=== PATIENT | female | born 1970 | race Caucasian/White ===

== ENCOUNTER → 2019-04-12 | Outpatient (CLI) | payer BC ==
[~2019-04-12] MED LIST: BACL20 PO; Bupropion HCl150 M2 PO; ESTRADIOL1 EAC3 TD; NUCYNTA ER250 MG PO; PROGESTERONE200 MG PO; Prednisone10 MG PO; Protonix40 MG PO; Roxicodone15 MG PO; SOLIFENACIN SUC10 MG PO; SUCR1 PO
[2019-04-14 15:07] LABS: HPV 16 Negative (Negative); HPV 18 Negative (Negative); HPV OTHER HR TYPES Negative (Negative)
== END | disposition home or self-care (01) ==
LOC: LAB SHORT 15:18 → LAB 15:18
PROVIDERS: Nurse Practitioner Women's Health
DX: Z12.4 Encounter for screening for malignant neoplasm of cervix (principal)
CPT/HCPCS: 87624; G0123

== ENCOUNTER 2019-04-30 10:49 | Emergency (ER) | payer BC ==
[~2019-04-30] VITALS: Ht 167.6 cm; Wt 72.6 kg
[2019-04-30] MEDS ORDERED: ESTRADIOL1 EAC3 TD (11:12)
[2019-04-30] MEDS ORDERED: Bupropion HCl150 M2 PO (11:12)
[2019-04-30] MEDS ORDERED: PROGESTERONE200 MG PO (11:12)
[2019-04-30] MEDS ORDERED: SOLIFENACIN SUC10 MG PO (11:13)
[2019-04-30] MEDS ORDERED: NUCYNTA ER250 MG PO (11:13)
[2019-04-30] MEDS ORDERED: Prednisone10 MG PO (11:13)
[2019-04-30] MEDS ORDERED: Roxicodone15 MG PO (11:14)
[2019-04-30] MEDS ORDERED: BACL20 PO (11:14)
[2019-04-30 11:19] LABS: BASOPHILS ABSOLUTE AUTO 0.01 K/mm3 (0.00-0.23); BASOPHILS PERCENT AUTO 0 % (0-2); EOSINOPHILS PERCENT AUTO 0 % (0-6); Hemoglobin 13.2 g/dL (11.5-16.0); IMMATURE GRAN ABSOLUTE AUTO 0.04 K/mm3 (0.00-0.10); IMMATURE GRAN PERCENT AUTO 0 % (0-1); LYMPHOCYTES PERCENT AUTO 7 % (21-46); MONOCYTES PERCENT AUTO 2 % (4-13); Mean Corpuscular HGB 30.3 pg (26.0-34.0); Mean Corpuscular Volume 92 fL (80-100); Mean Platelet Volume 10.2 fL (9.1-12.4); NEUTROPHILS ABSOLUTE AUTO 10.83 K/mm3 (1.96-9.15); NEUTROPHILS PERCENT AUTO 91 % (41-73); Platelet Count 215 K/mm3 (150-400); RDW Coefficient Variation 12.5 % (11.7-14.2); RDW Standard Deviation 42.3 fL (35.1-46.3); Red Blood Cell Count 4.36 M/mm3 (3.80-5.20); White Blood Cell Count 11.88 K/mm3 (4.00-11.30)
[2019-04-30 11:46] LABS: Alanine Aminotransfer (ALT/SGP 21 U/L (12-78); Albumin, Blood 3.7 g/dL (3.4-5.0); Albumin/Globulin Ratio 1.3 (0.8-1.8); Alk Phos 56 U/L (50-136); Anion Gap 4 mmol/L (6-16); Aspartate Aminotrans (AST/SGOT 14 U/L (12-37); Bilirubin, Total 0.3 mg/dL (0.1-1.0); Blood Urea Nitrogen 19 mg/dL (8-24); Bun/Creatinine Ratio 24.8 (12.0-20.0); CO2, Blood 29 mmol/L (21-32); Calcium, Blood 8.3 mg/dL (8.5-10.1); Chloride, Blood 109 mmol/L (98-108); Creatinine, Blood 0.77 mg/dL (0.40-1.00); Globulin, Blood 2.9 g/dL (2.2-4.0); Glomerular Filtration Rate >60 (60-); Glucose, Blood 114 mg/dL (70-99); Sodium, Blood 142 mmol/L (136-145); Total Protein, Blood 6.6 g/dL (6.4-8.2); Troponin I <0.015 ng/mL (0.000-0.040)
[2019-04-30] MEDS ORDERED: Protonix40 MG PO (11:57)
[2019-04-30] MEDS ORDERED: SUCR1 PO (11:57)
== END 2019-04-30 12:22 | disposition home or self-care (01) ==
LOC: ER 10:49
PROVIDERS: Internal Medicine
DX: K22.4 Dyskinesia of esophagus (principal); K21.9 Gastro-esophageal reflux disease without esophagitis; F32.9 Major depressive disorder, single episode, unspecified; G89.29 Other chronic pain; F17.219 Nicotine dependence, cigarettes, with unspecified nicotine-induced disorders; Z88.2 Allergy status to sulfonamides; Z88.0 Allergy status to penicillin; Z79.899 Other long term (current) drug therapy
CPT/HCPCS: 36415; 71046; 80053; 83690; 84484; 85025; 93005; 93010; 96374; 96375; 99284-25; C9113; J2405

== ENCOUNTER → 2019-07-12 | Outpatient (CLI) | payer BC ==
[2019-07-12 12:37] LABS: Source, Urine Catheter
[2019-07-12 13:59] LABS: Appearance, Urine Hazy (Clear); Bilirubin, Urine Neg (Neg); Blood, Urine 3+ (Neg); Color, Urine Yellow (P-Yellow); Glucose Qualitative, Urine Neg (Neg); Ketones, Urine Neg (Neg); Leukocyte Esterase, Urine 3+ (Neg); Nitrite, Urine Neg (Neg); Protein, Urine 2+ (Neg); Urobilinogen, Urine NORM (Normal)
[2019-07-12 14:41] LABS: White Blood Cells, Urine TNTC /hpf (0-5)
[2019-07-12 14:42] LABS: Bacteria Mod /hpf; Squamous Epithelial Cells Few /hpf (Few)
== END | disposition home or self-care (01) ==
LOC: LAB SHORT 11:26 → LAB 11:26
PROVIDERS: Nurse Practitioner Women's Health
DX: R35.0 Frequency of micturition (principal); R30.0 Dysuria
CPT/HCPCS: 81001; 87077; 87086; 87186

== ENCOUNTER → 2020-10-01 | Outpatient (CLI) | payer BC ==
[~2020-10-01] MED LIST changes: +Adipex-P37.5 M1 PO; +BUPR150ER PO; +CYCL10 PO; +DIAZ5 PO; +DOTTI1 EA19 TD; +IBUP800 PO; +LYLLANA TD; +MISO200 PO; +MYRBETRIQ50 MG PO; +NICO21TP TOP; +Ondansetron Odt8 MG MM; +PERCOCET 10-321 EAC1; +PROAIR RESPICL90 MCG IH; +PROG100 PO; +Vesicare10 MG PO
== END | disposition home or self-care (01) ==
LOC: LAB EV 14:56 → LAB SHORT 14:56
DX: N39.0 Urinary tract infection, site not specified (principal)
CPT/HCPCS: 87086

== ENCOUNTER 2021-03-16 06:12 | Day surgery (SDC) | payer BC ==
[~2021-03-16] VITALS: Ht 170.2 cm; Wt 214.8 kg
[~2021-03-16 06:12] MED LIST changes: -PERCOCET 10-321 EAC1
[2021-03-16] MEDS ORDERED: PERCOCET 10-321 EAC1 (07:01)
--- NOTE | 2021-03-16 08:04 | NUR ---
03/16/21 0804 Cresencio Lassiter FLUID DEFICIT, 115 MLS. WONDERLY NOTIFIED.
--- NOTE | 2021-03-16 08:24 | NUR ---
03/16/[address] BLANCO FOR ANCEF WITH KNOWN PCN ALLERGY OF HIVES.
--- NOTE | 2021-03-16 09:01 | NUR ---
03/16/21 0901 Sabina Olivo PT OUT OF PACU, DENIES ANY COMPLAINTS, STATES THAT SHE DOES HAVE CRAMPING, WAS BLEEDING PRIOR TO COMING HERE TODAY. WANTS TO USE THE RESTROOM. IV REMOVED, NO NAUSEA, TAKING FLUIDS. WC TO BR AND WC TO CAR WITH FRIEND FRUIT HARVEST WORKER.
== END 2021-03-16 08:54 | disposition home or self-care (01) ==
LOC: ORSCSDS 06:12
PROVIDERS: Obstetrics & Gynecology
PROC: 0UDB8ZX Extraction of Endometrium, Via Natural or Artificial Opening Endoscopic, Diagnostic (ICD-10-PCS; principal; 2021-03-16 07:30)
DX: N95.0 Postmenopausal bleeding (principal); G47.33 Obstructive sleep apnea (adult) (pediatric); Z87.891 Personal history of nicotine dependence; Z79.899 Other long term (current) drug therapy; E66.9 Obesity, unspecified; Z68.33 Body mass index [BMI] 33.0-33.9, adult
CPT/HCPCS: 88305; J0690; J1100; J1885; J2250; J2405; J2704; J3010; J7120

== ENCOUNTER → 2021-08-28 | Outpatient (CLI) | payer BC ==
[~2021-08-28] MED LIST changes: +PERCOCET 10-321 EAC1
[2021-08-28 09:36] LABS: Source, Urine Clean Catch
[2021-08-28 14:14] LABS: Bacteria Many /hpf; Red Blood Cells, Urine 0-2 /hpf (0-2); Squamous Epithelial Cells Few /hpf (Few); White Blood Cells, Urine TNTC /hpf (0-5)
== END | disposition home or self-care (01) ==
LOC: LAB SHORT 09:30 → LAB 09:30 → LAB FUT 08-27 09:10
PROVIDERS: Obstetrics & Gynecology
DX: N39.0 Urinary tract infection, site not specified (principal); R31.9 Hematuria, unspecified
CPT/HCPCS: 81015; 87077; 87086; 87186

== ENCOUNTER → 2021-10-31 | Outpatient (CLI) | payer BC | LOC: LAB SHORT 12:39 | DX: R39.9 Unspecified symptoms and signs involving the genitourinary system (principal) | CPT/HCPCS: 82043 ==

== ENCOUNTER 2023-05-02 07:14 | Day surgery (SDC) | payer OTHER ==
[~2023-05-02] VITALS: Ht 167.6 cm; Wt 82.8 kg
[2023-05-02] MEDS ORDERED: WEGOVY0.5 MG/0.5 SQ (08:12)
[2023-05-02 09:55] VITALS: BP 110/60
== END 2023-05-02 10:12 | disposition home or self-care (01) ==
LOC: ORSCSDS 07:14
PROVIDERS: Internal Medicine Gastroenterology
PROC: 0DJD8ZZ Inspection of Lower Intestinal Tract, Via Natural or Artificial Opening Endoscopic (ICD-10-PCS; principal; 2023-05-02 08:45)
DX: K62.5 Hemorrhage of anus and rectum (principal); K59.00 Constipation, unspecified; K64.8 Other hemorrhoids; E78.5 Hyperlipidemia, unspecified; Z79.899 Other long term (current) drug therapy
CPT/HCPCS: J2704; J7120

== ENCOUNTER → 2023-07-16 | Outpatient (CLI) | payer OTHER ==
[~2023-07-16] MED LIST changes: +WEGOVY0.5 MG/0.5 SQ
== END ==
LOC: LAB SHORT 15:25 → LAB 15:25 → EDSTATUS 07-15 15:00 → LAB FUT 07-15 15:00
DX: R30.0 Dysuria (principal)
CPT/HCPCS: 87077; 87086; 87186

== ENCOUNTER 2025-02-17 01:22 | Inpatient (IN) | payer OTHER ==
[~2025-02-17] VITALS: Ht 167.6 cm; Wt 77.1 kg
[2025-02-17] MEDS ORDERED: Ondansetron HCl 2 MG / ML 2ML Vial IV ONE (02:05)
[2025-02-17] MEDS ORDERED: Morphine Sulfate 4 MG/1 ML Injection IV ONE (02:05)
[2025-02-17] MEDS ORDERED: NS 1,000 ML IV SCH ×4 (02:05→15:30)
[2025-02-17] MEDS ORDERED: Ondansetron HCl 2 MG / ML 2ML Vial ONE (02:16)
[2025-02-17] MEDS ORDERED: HYDROmorphone HCl/Pf 1MG SYR IV PRN (02:20)
[2025-02-17 02:32] LABS: BASOPHILS ABSOLUTE AUTO 0.08 K/mm3 (0.00-0.23); BASOPHILS PERCENT AUTO 1 % (0-2); EOSINOPHILS ABSOLUTE AUTO 0.13 K/mm3 (0.00-0.68); EOSINOPHILS PERCENT AUTO 2 % (0-6); Hematocrit 39.9 % (33.0-51.0); Hemoglobin 13.4 g/dL (11.5-16.0); IMMATURE GRAN ABSOLUTE AUTO 0.01 K/mm3 (0.00-0.10); IMMATURE GRAN PERCENT AUTO 0 % (0-1); LYMPHOCYTES ABSOLUTE AUTO 1.93 K/mm3 (0.84-5.20); LYMPHOCYTES PERCENT AUTO 27 % (21-46); MONOCYTES ABSOLUTE AUTO 0.54 K/mm3 (0.16-1.47); MONOCYTES PERCENT AUTO 8 % (4-13); Mean Corpuscular HGB 30.5 pg (26.0-34.0); Mean Corpuscular HGB Conc 33.6 g/dL (31.5-36.5); Mean Corpuscular Volume 91 fL (80-100); Mean Platelet Volume 10.4 fL (9.1-12.4); NEUTROPHILS ABSOLUTE AUTO 4.48 K/mm3 (1.96-9.15); NEUTROPHILS PERCENT AUTO 63 % (41-73); Platelet Count 222 K/mm3 (150-400); RDW Coefficient Variation 12.3 % (11.7-14.2); RDW Standard Deviation 40.6 fL (35.1-46.3); Red Blood Cell Count 4.39 M/mm3 (3.80-5.20); White Blood Cell Count 7.17 K/mm3 (4.00-11.30)
[2025-02-17 02:57] LABS: Albumin, Blood 3.9 g/dL (3.4-5.0); Albumin/Globulin Ratio 1.2 (0.8-1.8); Bilirubin, Total 0.3 mg/dL (0.1-1.0); Bun/Creatinine Ratio 15.2 (12.0-20.0); Calcium, Blood 9.3 mg/dL (8.5-10.1); Creatinine, Blood 0.92 mg/dL (0.40-1.00); Globulin, Blood 3.3 g/dL (2.2-4.0); Potassium, Blood 3.6 mmol/L (3.5-5.5); Total Protein, Blood 7.2 g/dL (6.4-8.2)
[2025-02-17 03:33] LABS: Source, Urine Clean Catch
[2025-02-17 04:00] LABS: Bilirubin, Urine Neg (Neg); Blood, Urine Neg (Neg); Glucose Qualitative, Urine Neg (Neg); Ketones, Urine Neg (Neg); Leukocyte Esterase, Urine Neg (Neg); Nitrite, Urine Neg (Neg); Protein, Urine Neg (Neg); Urobilinogen, Urine NORM (Normal)
[2025-02-17 04:19] LABS: Appearance, Urine Clear (Clear); Color, Urine Yellow (P-Yellow)
[2025-02-17] MEDS ORDERED: Ondansetron HCl 2 MG / ML 2ML Vial IV PRN (05:10)
[2025-02-17] MEDS ORDERED: FentaNYL Citrate 50 MCG/ML 2 ML Injection IV PRN ×2 (05:15→10:30)
[2025-02-17] MEDS ORDERED: LORazepam 2 MG/ML 1ML Injection IV ONE (05:35)
[2025-02-17 06:14] VITALS: BP 162/96
[2025-02-17 07:31] VITALS: BP 145/98
--- NOTE | 2025-02-17 07:35 | NUR ---
0610-ER ADMIT TO ROOM 227 A 54Y/O FEMALE WHO CAME IN WITH ABD PAIN THAT STARTED AT 5 PM YESTERDAY. ADMITTED WITH SBO. TO ROOM WITH NG. PER REPORT NG PUT OUT 200 ML IN ED. PT IS MISERABLE WITH NG AND STILL HAVING ABD PAIN. LEGAL PROJECT MANAGER GAVE HER ATIVAN 0.5 MG IV PRIOR TO BRINGING HER TO ROOM. PT MEDICATED WITH MORPHINE AND DILAUDID IN ED AND PAIN STILL A 7/. ORTHO RN WIPED PT WITH SURG KIT. WARM BLANKET GIVEN. MEDICATED PT WITH FENTANYL 50 MCG IV. IV SITE LEFT AC AND PATIENT KEEPS BENDING IT, PLACED PILLOW UNDER ARM TO REMIND HER. IV NS STARTED AT 100 ML/HR. ORIENTED TO ROOM AND CALL LIGHT. NG TO LOW INTERMITTENT SX. HOSP HERE TO SEE PATIENT. PT ASKED FOR WATER AND SAID SHE CAN HAVE ICE CHIPS SPARINGLY, GIVEN. FENTANYL SEEMS TO BE HELPING WITH PTS PAIN. BED IN LOW POSITION AND CALL LIGHT IN REACH. REPORT TO RN TAKING PATIENT.
[2025-02-17 07:38] VITALS: BP 145/98
--- NOTE | 2025-02-17 12:57 | NUR ---
ICE PACK PROVIDED TO PT FOR HEADACHE. PLACED ON R TEMPORAL AREA. BLINDS CLOSED PT REPORTS LIGHT SENSITIVITY. PRIMARY RN NOTIFIED.
[2025-02-17] MEDS ORDERED: Ketorolac Tromethamine 15mg Vial IV PRN (15:00)
[2025-02-17 15:08] VITALS: BP 148/94
[2025-02-17] MEDS ORDERED: PERCOCET 10-321 EA10 PO (17:06)
--- NOTE | 2025-02-17 18:33 | NUR ---
SHIFT SUMMARY PT ADMITTED ON 02/17/25 FOR SBO. ADVANCED DIET TO CLEAR LIQUIDS PER DR. CASTILLO. PT TOLERATING DIET. DENIES N&V. MEDICATED FOR PAIN PER EMAR. ABDOMEN TENDER TO PALPATION. INDEPENDENT IN ROOM. CONTINUING TO HAVE LOOSE BM. PLAN TO ADVANCE DIET TOLERATED WITH DISCHARGE ON 02/18/25.
[2025-02-17 19:46] VITALS: BP 131/97
[2025-02-17] MEDS ORDERED: Docusate Sodium 100 MG Cap PO SCH (21:00)
[2025-02-17 23:42] VITALS: BP 142/90
--- NOTE | 2025-02-18 04:14 | NUR ---
SHIFT SUMMARY SANJU WAS ALERT AND FULLY ORIENTED ON ASSESSMENT. PT IND IN ROOM. PAIN MODERATELY WELL CONTROLLED AT THIS TIME. DENIES N/V. BT HYPOACTIVE T/O ABD. DISCUSSED BOWEL HABITS W/ PT AND LEARNED THAT PT HAS CHRONIC CONSTIPATION THAT SHE TAKES MANY OTC MEDS FOR DAILY TO STAY REGULAR, GIVEN THE REASON FOR PT ADMIT I REACHED OUT TO HOSPITALIST AND GOT BOWEL CARE ORDERED. NO ACUTE EVENTS TONIGHT OR OTHER NOTABLE CHANGES TO PT CONDITION.
[2025-02-18 04:16] VITALS: BP 134/89
[2025-02-18 05:30] LABS: BASOPHILS ABSOLUTE AUTO 0.07 K/mm3 (0.00-0.23); BASOPHILS PERCENT AUTO 1 % (0-2); EOSINOPHILS ABSOLUTE AUTO 0.17 K/mm3 (0.00-0.68); EOSINOPHILS PERCENT AUTO 2 % (0-6); Hematocrit 39.4 % (33.0-51.0); Hemoglobin 13.2 g/dL (11.5-16.0); IMMATURE GRAN ABSOLUTE AUTO 0.02 K/mm3 (0.00-0.10); IMMATURE GRAN PERCENT AUTO 0 % (0-1); LYMPHOCYTES ABSOLUTE AUTO 2.13 K/mm3 (0.84-5.20); LYMPHOCYTES PERCENT AUTO 25 % (21-46); MONOCYTES PERCENT AUTO 7 % (4-13); Mean Corpuscular HGB Conc 33.5 g/dL (31.5-36.5); Mean Corpuscular Volume 90 fL (80-100); Mean Platelet Volume 10.2 fL (9.1-12.4); NEUTROPHILS ABSOLUTE AUTO 5.47 K/mm3 (1.96-9.15); NEUTROPHILS PERCENT AUTO 65 % (41-73); Platelet Count 211 K/mm3 (150-400); RDW Coefficient Variation 12.2 % (11.7-14.2); RDW Standard Deviation 40.1 fL (35.1-46.3); White Blood Cell Count 8.46 K/mm3 (4.00-11.30)
[2025-02-18 06:02] LABS: Albumin, Blood 3.6 g/dL (3.4-5.0); Albumin/Globulin Ratio 1.2 (0.8-1.8); Bilirubin, Total 0.6 mg/dL (0.1-1.0); Bun/Creatinine Ratio 10.9 (12.0-20.0); Calcium, Blood 9.3 mg/dL (8.5-10.1); Creatinine, Blood 0.82 mg/dL (0.40-1.00); Globulin, Blood 3.1 g/dL (2.2-4.0); Total Protein, Blood 6.7 g/dL (6.4-8.2)
[2025-02-18 07:42] VITALS: BP 129/97
[2025-02-18] MEDS ORDERED: Ketorolac Tromethamine 15mg Vial IV ONE (08:05)
[2025-02-18] MEDS ORDERED: Polyethylene Glycol 3350 17 gm PO SCH (09:00)
[2025-02-18] MEDS ORDERED: OxyCODONE 10/Acetamin 325 TABLET PO PRN (09:45)
[2025-02-18] MEDS ORDERED: buPROPion HCL 150 MG TAB.SR.12H PO SCH (09:53)
[2025-02-18] MEDS ORDERED: Acetamin/Butalbital/Caffeine Tab PO ONE (11:10)
[2025-02-18] MEDS ORDERED: DOCU100 PO (13:58)
[2025-02-18] MEDS ORDERED: MIRALAX1714 PO (14:00)
--- NOTE | 2025-02-18 14:57 | NUR ---
DISCHARGE SUMMARY PT ADMITTED ON 02/17/25 FOR SBO. PT TOLERATING DIET. PT DENIES N&V. PT IS URINATING AND PASSING STOOL. EDUCATION/DISCHARGE INSTRUCTIONS PROVIDED. ALL QUESTIONS ANSWERED. PT WILL ISSUING OPERATOR NEW OTC MEDICATIONS. ALL PERSONAL ITEMS RETURNED TO PT. PT ABULATED OUT OF HOSPITAL.
== END 2025-02-18 15:17 | disposition home or self-care (01) | DRG 390 ==
LOC: ER 01:22 → SURS 01:23 → ERHOLD 04:00 → ER 04:00 → ERHOLD 05:30 → SURS 05:30
PROVIDERS: Emergency Medicine; ADMIT Internal Medicine
PROC: 0D9670Z Drainage of Stomach with Drainage Device, Via Natural or Artificial Opening (ICD-10-PCS; principal; 2025-02-17)
DX: K56.609 Unspecified intestinal obstruction, unspecified as to partial versus complete obstruction (principal); M19.90 Unspecified osteoarthritis, unspecified site; F32.A Depression, unspecified; F41.9 Anxiety disorder, unspecified; M54.50 Low back pain, unspecified; F17.290 Nicotine dependence, other tobacco product, uncomplicated; G43.909 Migraine, unspecified, not intractable, without status migrainosus; G89.29 Other chronic pain; Z79.891 Long term (current) use of opiate analgesic; Z88.2 Allergy status to sulfonamides; Z88.0 Allergy status to penicillin; Z79.1 Long term (current) use of non-steroidal anti-inflammatories (NSAID); Z90.49 Acquired absence of other specified parts of digestive tract
CPT/HCPCS: 36415; 74177; 74250; 80053; 81003; 83605; 83880; 85025; 96374-59; 96375; 96376; 99285-25; A9270; J1171; J1885; J2060; J2270; J2405; J3010; J7030; Q9967